=== PATIENT | male | born 1990 | race African-American/Black ===

== ENCOUNTER 2018-11-07 17:42 | Emergency (ER) | payer OTHER ==
[2018-11-07] MEDS ORDERED: TDAP ADULT 0.5 ML INJ (BOOSTRIX) IM ONE (18:04)
--- NOTE | 2018-11-07 18:04 | EDPHY ---
H & P Stated Complaint: L thumb lac with clean end user consultant knife, bleeding controlled Time Seen by Provider: 11/07/18 17:50 HPI/ROS: CHIEF COMPLAINT: Thumb laceration HISTORY OF PRESENT ILLNESS: Patient is a 28-year-old man who comes to the emergency department complaining of a laceration to his left thumb. 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 He has a partial amputation to the fat pad and nail and nail bed of his left thumb. It is in place, bleeding is controlled. No other injuries. Normal movement in the thumb and hand. Severity: Moderate Modifying factors: None REVIEW OF SYSTEMS: Constitutional: denies: chills, fever, recent illness, recent injury EENTM: denies: blurred vision, double vision, nose congestion Respiratory: denies: cough, shortness of breath Cardiac: denies: chest pain, irregular heart rate, lightheadedness, palpitations Gastrointestinal/Abdominal: denies: abdominal pain, diarrhea, nausea, vomiting, blood streaked stools Genitourinary: denies: dysuria, frequency, hematuria, pain Musculoskeletal: denies: joint pain, muscle pain Skin: See HPI Neurological: denies: headache, numbness, paresthesia, tingling, dizziness, weakness Hematologic/Lymphatic: denies: blood clots, easy bleeding, easy bruising Immunologic/allergic: denies: HIV/AIDS, transplant 10 systems reviewed and negative except as noted EXAM: GENERAL: Well-appearing, well-nourished and in no acute distress. HEAD: Atraumatic, normocephalic. EYES: Pupils equal round and reactive to light, extraocular movements intact, sclera anicteric, conjunctiva are normal. ENT: oropharynx clear without exudates. Moist mucous membranes. NECK: Normal range of motion, supple without lymphadenopathy or JVD. LUNGS: Breath sounds clear HEART: Regular rate and rhythm without murmurs, rubs or gallops. ABDOMEN: Soft, nontender, normoactive bowel sounds. No guarding, no rebound. No masses appreciated. BACK: No CVA tenderness, no spinal tenderness, step-offs or deformities EXTREMITIES: See diagram, Normal range of motion, no pitting or edema. No clubbing or cyanosis. NEUROLOGICAL: Cranial nerves II through XII grossly intact. Normal speech, normal gait. 5/5 strength, normal movement in all extremities, normal sensation , normal reflexes PSYCH: Normal mood, normal affect. SKIN: See diagram Source: Patient Exam Limitations: No limitations - Personal History Current Tetanus/Diphtheria Vaccine: Yes - Medical/Surgical History Hx Asthma: Yes Hx Chronic Respiratory Disease: No Hx Diabetes: No Hx Cardiac Disease: No Hx Renal Disease: No Hx Cirrhosis: No Hx Alcoholism: No Hx HIV/AIDS: No Hx Splenectomy or Spleen Trauma: No Other PMH: gastric bypass, - Family History Significant Family History: No pertinent family hx - Social History Smoking Status: Never smoked Alcohol Use: None Constitutional: Initial Vital Signs Temperature (C) 36.9 C 11/07/18 17:44 Heart Rate 84 11/07/18 17:44 Respiratory Rate 16 11/07/18 17:44 Blood Pressure 132/86 H 11/07/18 17:44 O2 Sat (%) 99 11/07/18 17:44 O2 Delivery Mode Room Air Allergies/Adverse Reactions: Penicillins Allergy (Verified 11/07/18 17:44) Sulfa (Sulfonamide Antibiotics) Allergy (Verified 11/07/18 17:44) Home Medications: Medication Instructions Recorded Hydrocodone/Acetaminophen 15 ml PO Q6-8PRN PRN #120 ml 11/07/18 [Hydrocodone-Acetamin 10-325/15] ED Images - Extremities Fingertip Front/Back: 1 - Left thumb laceration/partial amputation to the finger fat pad, involving the nail bed, ulnar aspect. Tissue when nail bridge on the radial aspect. Medical Decision Making Procedures: Procedure: Laceration repair. Verbal consent was obtained from the patient. The finger tip laceration was anesthetized with 0.5% bupivacaine digital block. The wound was irrigated copiously according to protocol, draped and explored to its base. It was near finger tip amputation. There were no deep structures involved. No tendon, nerve, or vascular injury was identified when explored. No foreign body was identified. The wound was repaired with 3 sutures 5.0 Vicryl to the nail bed with the fingernail elevated but not completely removed., for sutures 5.0 Prolene interrupted around the laceration. The wound repair was complex with fingernail elevation, removal of the distal part of the fingernail and nail bed repair. The procedure was performed by myself. A dressing was then placed with sterile gauze and bacitracin. ED Course/Re-evaluation: Patient tolerated suture repair. I did remove the distal aspect of the fingernail that had already almost completely been cut off. The proximal 2/3 of the finger nail was elevated and 3 sutures were placed to the nail bed. Another 4 sutures were placed to hold the amputated aspect in place. We discussed suture care and removal in 10 days. He is asking for a work note as well as liquid pain medicine because he has had a gastric bypass and has trouble digesting pills. Differential Diagnosis: Partial list of the Differential diagnosis considered include but were not limited to; finger laceration, partial amputation, tetanus booster, nail bed injury and although unlikely based on the history and physical exam, I also considered foreign body, open fracture. I discussed these differential diagnoses and the plan with the patient as well as the usual and expected course. The patient understands that the diagnosis is provisional and that in medicine we are not always correct and that further workup is often warranted. Usual and customary warnings were given. All of the patient's questions were answered. The patient was instructed to return to the emergency department should the symptoms at all worsen or return, otherwise to followup with the physician as we discussed. - Data Points Medications Given: Discontinued Medications Hydrocodone Bitart/Acetaminophen (Hycet Oral Liquid) 30 ml PO EDNOW ONE Stop: 11/07/18 19:07 Last Admin: 11/07/18 19:15 Dose: 30 ml Diphtheria/Tetanus/Acell Pertussis (Boostrix) 0.5 ml IM .ONCE ONE Stop: 11/07/18 18:05 Last Admin: 11/07/18 18:07 Dose: 0.5 ml Departure - Departure Disposition: Home, Routine, Self-Care Clinical Impression: Partial amputation finger tip left thumb Condition: Good Instructions: Hydrocodone/Acetaminophen (By mouth), Care For Your Stitches (DC) Additional Instructions: Have your stitches removed in 10 days Referrals: NONE *PRIMARY CARE P,. [Primary Care Provider] - As per Instructions Karina Fox MD [Medical Doctor] - As per Instructions Stand Alone Forms: Work Excuse Prescriptions: Hydrocodone/Acetaminophen [Hydrocodone-Acetamin 10-325/15] 15 ml PO Q6-8PRN PRN #120 ml PRN Reason: Pain, Moderate
[2018-11-07] MEDS ORDERED: HYDROCOD/APAP 7.5/325 IN 15ML UDCUP PO ONE (19:06)
[2018-11-07 19:32] VITALS: BP 151/86
== END 2018-11-07 19:32 | disposition home or self-care (01) ==
PROC: 0HQQXZZ Repair Finger Nail, External Approach (ICD-10-PCS; principal; 2018-11-07)
PROC: 0HQGXZZ Repair Left Hand Skin, External Approach (ICD-10-PCS; 2018-11-07)
DX: S61.012A Laceration without foreign body of left thumb without damage to nail, initial encounter (principal); Z23 Encounter for immunization; W26.0XXA Contact with knife, initial encounter; Y93.G3 Activity, cooking and baking